=== PATIENT | male | born 1985 | race Caucasian/White ===

== ENCOUNTER → 2018-04-03 | Day surgery (SDC) | payer OTHER ==
[2018-04-03] VITALS (7 sets, daily range): BP systolic 104–152; BP diastolic 76–98; PULSE 71–92; TEMP 36.5; O2SAT 97–100; Ht 167.6 cm; Wt 61.0 kg
[~2018-04-03] VITALS: Ht 167.6 cm; Wt 61.0 kg
[~2018-04-03] MED LIST: CYAN100T PO; MIDAZOLAM HCL 1 MG/ML 2ML VIAL ONE; PHENYLEPHRINE HCL INJ 10 MG/ML VIAL ONE; PROPOFOL IV EMULSION 10 MG/ML 20 ML VIAL ONE; SODIUM CHLORIDE 0.9% INJ 10 ML VIAL ONE; WARF2.5T8 PO; WARF5TAB7 PO
--- NOTE | 2018-04-03 08:14 | Anesthesiology Progress Note ---
Anesthesia Post Op Note Date & Time April 03, 2018 at 08:14 Vital Signs Pain Intensity: 0 Vital Signs Past 12 Hours Date Time Temp Pulse Resp B/P (MAP) Pulse Ox O2 Delivery O2 Flow Rate FiO2 04/03/18 08:05 91 18 152/98 99 Nasal Cannula 4 04/03/18 08:00 92 18 125/76 99 Nasal Cannula 4 04/03/18 07:55 83 18 129/95 99 Nasal Cannula 4 04/03/18 07:50 91 18 121/94 99 Nasal Cannula 4 04/03/18 07:45 80 18 136/93 99 Nasal Cannula 4 04/03/18 07:00 36.5 71 16 104/85 (91) 100 Room Air Notes Mental Status: alert / awake / arousable, participated in evaluation Pt Amnestic to Procedure: Yes Nausea / Vomiting: adequately controlled Pain: adequately controlled Airway Patency, RR, SpO2: stable & adequate BP & HR: stable & adequate Hydration State: stable & adequate Anesthetic Complications: no major complications apparent
--- NOTE | 2018-04-03 08:50 | Discharge Instructions ---
Discharge Instructions Procedure Procedure Date: April 03, 2018. Reason for Visit: Abn Echo,Aortic Valve Replacement*Simon Doing*. Discharge Discharge Date: April 03, 2018. Discharge Diagnosis: NA without complication Last Recorded Wt (Kilograms): 61 Anesthesia Post Anesthesia Instructions: If you have had General Anesthesia or IV Sedation: * Do not drive today. * Resume driving when surgeon permits. * Do not make important decisions or sign legal documents today. * Call surgeon for: 1. Temperature elevations greater than 101 degrees F. 2. Uncontrollable pain. 3. Excessive bleeding. 4. Persistent nausea and vomiting. 5. Medication intolerance (nausea, vomiting or rash). * For nausea and vomiting use only clear liquids such as: tea, soda, bouillon until nausea subsides, then gradually increase diet as tolerated. * If you have any concerns or questions, call your surgeon's office. If physician is unavailable and it is an emergency, call 911 or go to the nearest emergency room. Instructions Activity Recommendations: limitations as noted below Return to School/Work: with the following limitations Recommended Home Diet: resume previous diet Allergies: Coded Allergies: Penicillins (Verified Allergy, Mild, 01/18/16) Provider Instructions ACTIVITY RECOMMENDATIONS: Resume activities as tolerated with no limitations unless specified. __ No lifting over __ pounds for 24 hours. __ Do not engage in vigorous exercise, sexual activity, or sports for 24 hours. __ Do not drive or operate any motorized equipment for 24 hours. __ You may return to work/school tomorrow. __ Nothing to eat or drink until gag reflex returns. __ No HOT or WARM liquids for __ hours. __ Avoid "scratchy" foods such as potato chips or pretzels for 24 hours following procedure. SPECIAL CARE: If you experience coughing up or vomiting of blood, contact Follow Up Additional Instructions: Follow with Dr Flores as scheduled Charles Lobo Recommendations: Call your doctor if: * Temperature above 101 degrees * Pain not relieved by pain medicine ordered * There is increased drainage or redness from any incision * You have any unanswered questions or concerns. Your Doctors Instructions noted above were prepared by provider Alexi Montes. Patient Signature Section: Patient Instructions Signature Page Júnior Charlton Patient (or Guardian) Signature/Date: I have read and understand the instructions given to me by my caregivers. Caregiver/RN/Doctor Signature/Date: The above-named patient and/or guardian has received patient instructions on this date. + Original Patient Signature Page (only) stays with chart. Please make copy for patient.
--- NOTE | 2018-04-03 17:20 | TEE ---
*NOTICE TO RECEIVING REPUBLICAN AGENCY This information is strictly Confidential and protected under [place] law. [place] law prohibits you from making any further disclosure of this information unless further disclosure is expressly permitted by the written consent of the person to whom it pertains or is authorized by law. A general authorization for the release of medical or other information is not sufficient for this purpose. Hospital accepts no responsibility if the information is made available to any other person, INCLUDING THE PATIENT. Interpretation Summary * Name: BRENTON ROSENBERG Study Date: 04/03/2018 07:37 AM BP: 104/85 mmHg * Patient Location: [facility] HR: 89 * : 1985 (M/d/yyyy) Gender: Male Height: 66 in * Age: 32 yrs Ethnicity: [place] Weight: 134 lb * Ordering Physician: Alexi Montes MD, [facility] * Referring Physician: Luca Flores DO * Performed By: Laura Tomlin RCS * * Reason For Study: ABN ECHO / AORTIC VALVE REPLACEMENT * BSA: 1.7 m2 * -- Conclusions -- * There is a normally functioning [employer] mechanical prosthesis in the aortic valve position without visualized mass, thrombus or vegetation * The left ventricle is normal in size. * The left ventricular wall motion is normal. * Ejection Fraction = 60-65%. * The aortic root is normal size. * Borderline dilated ascending aorta. Procedure Details * NA Probe #1 utilized for procedure. * The study was performed in Cardiac Catheterization Lab. * Time out was conducted by the physician, nurse, and quality control tech with positive identification of patient and procedure. * Informed consent for Transesophageal Echocardiogram was obtained prior to the procedure. * An intravenous line was placed. A topical anesthetic agent was used for oropharangeal anesthesia. A bite block was inserted. * Sedation performed by the anesthesia department. * The patient's vital signs, including blood pressure, heart rate, pulse oximetry and cardiac rhythm were monitored throughout the procedure . * Midazolam 2 mg administered for sedation. * The posterior oropharynx was anesthetized using a topical anesthetic spray. A bite guard was inserted. * A multifrequency, multiplane transesopheageal echocardiographic endoscope was inserted and manipulated in the standard fashion to achieve multiplane views. * The usual views were obtained; basal, mid-esophageal, transgastric and aortic views. * The patient tolerated the procedure well without evidence of orophangeal or esophageal trauma. * TIME OUT: 07 START TIME: 0 END TIME: 801 200 mg of Propofol was administered by anesthesia. * A 2D transesophageal echocardiogram with color flow Doppler was performed. Left Ventricle * The left ventricle is normal in size. * There is normal left ventricular wall thickness. * Left ventricular systolic function is normal. * Ejection Fraction = 60-65%. * The left ventricular wall motion is normal. Right Ventricle * The right ventricle is normal in size and function. Atria * The left atrial size is normal. * Right atrial size is normal. Mitral Valve * The mitral valve anatomy is normal. * There is no mitral valve stenosis. * There is trace mitral regurgitation. Tricuspid Valve * The tricuspid valve anatomy is normal. * There is no tricuspid stenosis. * There is trace tricuspid regurgitation. Aortic Valve * There is no aortic valvular vegetation. * There is a bi-leaflet ([employer]) aortic mechanical prosthesis. * The prosthetic aortic valve appears to open well. * The gradient is normal for this prosthetic aortic valve. Pulmonic Valve * The pulmonic valve is not well seen, but is grossly normal. Great Vessels * The aortic root is normal size. * Borderline dilated ascending aorta. Pericardium * There is no pericardial effusion.
== END | disposition home or self-care (01) ==
LOC: C.CATH 06:36
PROVIDERS: ATTEND Internal Medicine Cardiovascular Disease
DX: R93.1 Abnormal findings on diagnostic imaging of heart and coronary circulation (principal); F17.200 Nicotine dependence, unspecified, uncomplicated; I67.2 Cerebral atherosclerosis; Z86.73 Personal history of transient ischemic attack (TIA), and cerebral infarction without residual deficits; Z51.81 Encounter for therapeutic drug level monitoring; Z79.01 Long term (current) use of anticoagulants; Z95.2 Presence of prosthetic heart valve; Z88.0 Allergy status to penicillin